=== PATIENT | female | born 1970 | race Caucasian/White ===

== ENCOUNTER → 2021-11-01 | Outpatient (CLI) | payer BC ==
[2021-11-01 13:23] LABS: HEMOGLOBIN 14.9 gm/dl (12.3-15.3); RED BLOOD COUNT 4.55 M/UL (4.00-5.10); WHITE BLOOD COUNT 9.5 K/UL (4.5-11.0)
[2021-11-01 13:42] LABS: BUN/CREATININE RATIO 13 (0-10)
[2021-11-02 09:14] LABS: HBSAG SCREEN Negative (Negative); HEP B CORE AB, TOT Negative (Negative); VITAMIN D, 25-HYDROXY 18.5 ng/mL (30.0-100.0)
[2021-11-02 11:14] LABS: HCV AB <0.1 (0.0-0.9)
[2021-11-02 12:14] LABS: COMPLEMENT C3, SERUM 130 mg/dL (82-167); COMPLEMENT C4, SERUM 22 mg/dL (12-38); RHEUMATOID ARTHRITIS FACTOR <10.0 IU/mL (<14.0)
== END ==
LOC: LAB 11:46
PROVIDERS: Nurse Practitioner Family
DX: Z11.59 Encounter for screening for other viral diseases (principal); M25.551 Pain in right hip; D89.9 Disorder involving the immune mechanism, unspecified; R76.8 Other specified abnormal immunological findings in serum; M25.50 Pain in unspecified joint; E55.9 Vitamin D deficiency, unspecified; Z79.899 Other long term (current) drug therapy; L93.0 Discoid lupus erythematosus; M79.10 Myalgia, unspecified site
CPT/HCPCS: 36415; 73502; 80053; 81001; 82550; 82570; 82728; 83520; 84156; 84439; 84443; 85025; 85652; 86140; 86160; 86162; 86200; 86431; 86704; 86803; 87340